=== PATIENT | male | born 1990 | race Caucasian/White ===

== ENCOUNTER 2024-10-09 01:00 | Emergency (ER) | payer MEDICAID, SELFPAY ==
[2024-10-09] VITALS (9 sets, daily range): BP systolic 158–246; BP diastolic 93–152; PULSE 81–111; RESP 17–20; TEMP 36.4–36.7; O2SAT 92–100; BMI 38.0
--- NOTE | 2024-10-09 01:34 | EDNOTE_ITS ---
ED Syncope RME/HPI General Chief Complaint: Syncope / Near Syncope Stated Complaint: SYNCOPE Time Seen by Provider: 10/09/24 01:37 Arrival date/time: 10/09/24 01:00 Limitations: no limitations RME / HPI RME / HPI narrative: Dr. Stout's Main ED Evaluation: 33yo male with pmhx HTN (non-compliant) BIBA presents to the ED for a chief complaint of near syncope. Patient states he has a mild headache, feels dizzy, and has had blurry vision for 2-3 hours [employer] OF [employer]. Patient endorses uses methamphetamines 4 hours [employer]. He denies any chest pain, shortness of breath or any other associated symptoms. No known allergies. Related Data Allergies Allergy/AdvReac Type Severity Reaction Status Date / Time No Known Allergies Allergy Verified 12/01/23 22:11 Review of Systems Review of Systems Systems Reviewed: All systems reviewed, normal except as documented Past Medical History Past Medical History CARDIAC: Positive Hypertension; Negative Congestive Heart Failure RESPIRATORY: Negative Chronic Obstructive Pulmonary Disease (COPD) GENITOURINARY: Negative Renal Disease ENDOCRINE: Negative Diabetes Mellitus Type 1 or Diabetes Mellitus Type 2 Social History SMOKING STATUS: Never smoker ED Exam General Limitations: Present no limitations General appearance: Present alert, in no apparent distress and other (awake, answering questions, GCS 15) Head Head exam: Present atraumatic Eye Eye exam: Present normal appearance, PERRL and EOMI ENT ENT exam: Present normal exam, normal oropharynx and mucous membranes moist Neck Neck exam: Present normal inspection, full ROM and trachea midline Chest Chest inspection: Present normal inspection and symmetric chest wall rise Respiratory Respiratory exam: Present normal lung sounds bilaterally Cardiovascular Cardiovascular exam: Present normal rhythm, tachycardia and normal heart sounds Abdominal Exam Abdominal exam: Present soft and normal bowel sounds Extremities Exam Extremities exam: Present normal inspection and full ROM Back Exam Back exam: Present normal inspection and full ROM Neurological Exam Neurological exam: Present alert, oriented X3 and CN II-XII intact Psychiatric Psychiatric exam: Present normal affect and normal mood Skin Skin exam: Present warm, intact, normal color and diaphoresis Course Course Course Narrative: CXR is ordered for determining the etiology of weakness. Quality Measures none Orders Category Date Time Status Bacteriologist Dairy Q4H START 00 Care 10/09/24 01:37 Completed EKG (ED ONLY) *Do not use* NOW Care 10/09/24 01:36 Completed CXRP [XR chest 1V portable] Stat Exams 10/09/24 01:36 Taken EKG (ED Only) Stat Exams 10/09/24 01:35 Ordered BNP [B-Type Natriuretic Peptide] Stat Lab 10/09/24 02:35 Completed CBC Stat Lab 10/09/24 02:35 Completed CK [Creatine Kinase] Stat Lab 10/09/24 02:35 Completed PT [Prothrombin Time with INR] Stat Lab 10/09/24 02:35 Completed PTT [Partial Thromboplastin Time] Stat Lab 10/09/24 02:35 Completed Troponin I Stat Lab 10/09/24 02:35 Completed Urinalysis Stat Lab 10/09/24 03:31 Completed Labetalol IV [Trandate IV] Med 10/09/24 01:35 Discontinued 10 mg IVP X1 ONE Vital Signs Vital signs: Vital Signs Temperature 97.5 F 10/09/24 01:09 Pulse Rate 97 10/09/24 01:09 Respiratory Rate 17 10/09/24 01:09 Blood Pressure 246/146 H 10/09/24 01:09 Pulse Oximetry (%) 100 10/09/24 01:09 Oxygen Delivery Method Nasal Cannula 10/09/24 01:09 Oxygen Flow Rate 2 10/09/24 01:09 Syncope Patient data External records reviewed:: [facility] previous records (Per chart review, pt has no relevant previous ED visits.) Clinical information provided by:: patient Social determinants that could affect healthcare access:: substance use Patient has the following chronic illnesses:: HTN How is presenting disease/condition affected by chronic disease/condition?: exacerbated by Evaluation data The following diagnostics were reviewed and interpreted by me:: lab results, radiology exam(s) and EKG tracing(s) Lab and/or radiology exams considered but not ordered:: none Interpretation Summary: WBC count is elevated at 13.6, troponin is normal, BNP is slightly elevated at 127, UA is unremarkable, according to my interpretation. CXR shows mild CHF, no infiltrates, no pneumothorax, according to my interpretation. EKG done at 0214, NSR, rate of 81, nonspecific ST changes in V5 and V6, QTc: 469, T-wave inversions in V4-V6, different from previous EKG done in 2019, according to my interpretation. Medications / Prescriptions Medications or Prescriptions considered but not ordered:: none Medication administrations:: Medication Administration History Discontinued Medications Labetalol HCl (Labetalol Inj 5 Mg/Ml Vial 20 Ml) 10 mg IVP X1 ONE Stop: 10/09/24 01:36 Last Admin: 10/09/24 01:49 Dose: 10 mg Documented By: RICK see above Consultations Consultation(s) initiated? (list below): No Diagnosis Syncope Differential Diagnosis: dehydration and other (hypertensive urgency, hypertensive emergency, methamphetamine use) Most likely diagnosis given after review of the tests above:: Patient signed out AMA. Admission Indicated Admission indicated?: not indicated Admission Request Was there a request for admission?: No Disposition Plan Disposition Plan: other (specify) (Patient signed out AMA.) Critical Care Time Critical Care Time Critical Care Time: Yes Total Critical Care Time (min.): 35 Attestation: The high probability of sudden, clinically significant deterioration in the patient?s condition required the highest level of my preparedness to intervene urgently. The services I provided to this patient were to treat and/or prevent clinically significant deterioration. Services included the following: chart data review, reviewing nursing notes and/or old charts, documentation time, regulatory affairs consultant collaboration regarding findings and treatment options, medication orders and management, direct patient care, vital sign assessments and ordering, interpreting and reviewing diagnostic studies and lab tests. Aggregate critical care time includes only time during which I was engaged in work directly related to the patient?s care, as described above, whether at bedside or elsewhere in the Emergency Department. It did not include time spent performing other reported procedures or the services of residents, students, nurses or physician assistants. Discharge Plan Plan Patient Disposition: Left Against Medical Advice Patient condition on transfer: Stable Prescriptions/Referrals Referrals: Dejuan Florez MD [Primary Care Provider] - In 1 week Problem List Clinical Impression: Hypertensive emergency, Cocaine abuse Patient/Caregiver Discharge Instructions Education Materials: Cocaine: Getting Help, ED Hypertension, To Be Confirmed Additional Instructions: You will need to follow-up with your primary care physician so that you can get your blood pressure checked and restart your blood pressure medications. At this time you do not even know what that medication is. Please stop doing cocaine to avoid having a stroke or worse to include . Return to emergency department for worsening symptoms, or any other concerns. Print Language: Barbadian
--- NOTE | 2024-10-09 01:35 | EKG_ITS ---
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
--- NOTE | 2024-10-09 01:36 | XR_ITS ---
Examination: AP chest single view TECHNIQUE: AP portable upright chest single view Exam date and time: October 09, 2024 0219 hours Comparison 06/27/2018 INDICATIONS: Onset chest pain today FINDINGS: No significant cardiac enlargement Mild vascular congestion No lobar pneumonia No pulmonary edema Intact osseous structures IMPRESSION: Mild vascular congestion
[2024-10-09] MEDS: LABETALOL INJ 5 MG/ML VIAL 20 ML 10 MG IVP (01:49)
[2024-10-09 02:56] LABS: Basophils # (Auto) 0.1 Thou/mm3 (0.0-0.2); Basophils % (Auto) 1 % (0-2.5); Eosinophils # (Auto) 0.1 Thou/mm3 (0.0-0.5); Eosinophils % (Auto) 1 % (0-10); Hematocrit 48.8 % (41.0-53.0); Hemoglobin 16.5 g/dL (13.5-16.0); Immature Granulocytes % (Auto) 0 % (0-0); Immature Granulocytes Auto 0.06 Thou/mm3 (0.00-0.00); Lymphocytes # (Auto) 2.2 Thou/mm3 (1.0-4.8); Lymphocytes % (Auto) 16 % (10-50); Mean Corpuscular HGB Conc 33.8 g/dl (31.0-37.0); Mean Corpuscular Hemoglobin 29.9 pg (25.0-35.0); Mean Corpuscular Volume 89 fL (80-100); Monocytes # (Auto) 0.8 Thou/mm3 (0.0-0.8); Monocytes % (Auto) 6 % (0-12); Neutrophils # (Auto) 10.4 Thou/mm3 (1.8-7.7); Neutrophils % (Auto) 76 % (37-80); Nucleated Red Blood Cell % 0 /100 WBC (0); Platelet Count 279 Thou/mm3 (140-440); RDW Standard Deviation 39.6 fL (35.1-43.9); Red Blood Count 5.51 Miln/mm3 (4.50-5.90); White Blood Count 13.6 Thou/mm3 (3.8-10.6)
[2024-10-09 03:12] LABS: Partial Thromboplastin Time 25.9 Seconds (22.0-36.0); Prothrombin Time 10.9 Seconds (9.0-12.2)
[2024-10-09 03:14] LABS: B-Type Natriuretic Peptide 124 pg/mL (0-100)
[2024-10-09 03:17] LABS: Creatine Kinase 177 U/L (34-171); Troponin I < 0.020 ng/mL (0.0-0.045)
[2024-10-09 03:38] LABS: Collection Type, Urine Voided
[2024-10-09 03:43] LABS: Bilirubin,Urine Negative (Negative); Blood,Urine Negative (Negative); Clarity,Urine Turbid (Clear/Hazy); Color,Urine Lt-Yellow (Lt Yel-Yel); Glucose, Urine Negative (Negative); Ketones,Urine Negative (Negative); Leukocyte Esterase,Urine Negative (Negative); Nitrite,Urine Negative (Negative); Protein,Urine Trace (Neg - Trace); RBC,Urine 3 /hpf (0-3); Specific Gravity,Urine 1.023 (1.001-1.035); Squamous Epithelial Cell,Urine 1 /hpf (0-5); Urobilinogen,Urine Negative mg/dL (0.0-1.0); WBC,Urine 4 /hpf (0-5)
== END 2024-10-09 06:48 | disposition left against medical advice (07) ==
PROVIDERS: Emergency Provider Emergency Medicine; PCP Family Medicine
DX: I16.1 Hypertensive emergency (principal); F14.10 Cocaine abuse, uncomplicated; Z53.29 Procedure and treatment not carried out because of patient's decision for other reasons; I10 Essential (primary) hypertension
CPT/HCPCS: 36415; 71045; 81001; 82550; 83880; 84484; 85025; 85610; 85730; 93005; 99291; J3490; J1920